=== PATIENT | female | born 1970 ===

== ENCOUNTER 2020-01-09 06:39 | Day surgery (SDC) | payer OTHER ==
[~2020-01-09 06:39] MED LIST: CIPRO500 MG PO; FLUCONAZOLE150 MG PO; HYOSCYAMINE0.125 M1 SL; INTESTINEX1 CA1 PO; NYSTATIN PO; NYSTATIN-TRIAMC15 GM TP; [UNRECOGNIZED DRUG - OTHER] PO
== END 2020-01-09 10:40 | disposition home or self-care (01) ==
LOC: AMB-ENDOS 06:39
PROVIDERS: ATTEND Colon & Rectal Surgery
DX: K62.89 Other specified diseases of anus and rectum (principal); K64.0 First degree hemorrhoids; Z20.828 Contact with and (suspected) exposure to other viral communicable diseases